=== PATIENT | female | born 2000 | race American Indian/Alaskan Native ===

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

== ENCOUNTER 2019-05-19 22:40 | Emergency (ER) | payer SELFPAY ==
[2019-05-19 23:18] LABS: Hematocrit 36.6 % (30.3-42.9); Hemoglobin 12.9 gm/dl (10.1-14.3); Mean Corpuscular HGB Conc 35 % (30-34); Mean Corpuscular Volume 88 fl (79-97); Platelet Count 225 K/mm3 (140-440); Red Blood Count 4.15 M/mm3 (3.65-5.03); Red Cell Distribution Width 12.9 % (13.2-15.2)
[2019-05-19 23:39] LABS: BUN/Creatinine Ratio 22; Blood Urea Nitrogen 13 mg/dL (7-17); Calcium 9.6 mg/dL (8.4-10.2); Hemolysis Index 5
[2019-05-19] MEDS ORDERED: PHENYTOIN 1,000 MG in SODIUM CHLORIDE 0.9% 250ML 250 ML IV ONE (23:50)
--- NOTE | 2019-05-19 23:53 | Emergency Department Report ---
ED Seizure HPI - General Chief Complaint: Seizure Stated Complaint: SEIZURE/WEAKNESS Time Seen by Provider: 05/19/19 23:45 Source: EMS Mode of arrival: Stretcher Limitations: Altered Mental Status - History of Present Illness Initial Comments: Patient is 18 years old female with history of seizure. Patient brought to the emergency room via EMS for evaluation of possible seizure that happened tonight at home. Patient boyfriend is giving history. He stated that she was fine until she went to bed when she started shaking and he passed out went to sleep. He stated that she was taking Keppra but she stopped taking it because of the side effect and currently does not taking any seizure medicine. He denies any injury. No fever or chills recently. Patient is post ictal when I examined her. Patient is moving all her extremities. MD Complaint: seizure -: Sudden, This evening Description of Episode: loss of consciousness, tonic-clonic movement, post-event confusion Witnessed:: Yes Trauma: No Seizure History: known seizure disorder Place: home Possible Precipitating Event: none Associated Symptoms: denies other symptoms Treatments Prior to Arrival: none - Related Data Allergies Allergy/AdvReac Type Severity Reaction Status Date / Time levetiracetam [From Keppra] Allergy Unknown Verified 05/19/19 22:59 ED Review of Systems ROS: Stated complaint: SEIZURE/WEAKNESS Other details as noted in HPI Comment: All other systems reviewed and negative Constitutional: denies: chills, fever Respiratory: denies: cough, shortness of breath, SOB with exertion Cardiovascular: denies: chest pain Gastrointestinal: denies: abdominal pain, nausea, diarrhea, constipation, hematemesis, melena, hematochezia Musculoskeletal: denies: back pain ED Past Medical Hx - Past Medical History Previous Medical History?: Yes Hx Seizures: Yes - Surgical History Past Surgical History?: No - Social History Smoking Status: Never Smoker ED Physical Exam - General Limitations: Altered Mental Status General appearance: alert, in no apparent distress - Head Head exam: Present: atraumatic, normocephalic, normal inspection - Eye Eye exam: Present: normal appearance - ENT ENT exam: Present: normal exam, normal orophraynx, mucous membranes moist - Neck Neck exam: Present: normal inspection, full ROM. Absent: tenderness, meningismus, lymphadenopathy, thyromegaly - Respiratory Respiratory exam: Present: normal lung sounds bilaterally - Cardiovascular Cardiovascular Exam: Present: regular rate, normal rhythm, normal heart sounds - GI/Abdominal GI/Abdominal exam: Present: soft, normal bowel sounds. Absent: distended, tenderness, guarding, rebound, rigid, organomegaly, mass, bruit, pulsatile mass, hernia - Extremities Exam Extremities exam: Present: normal inspection, full ROM, normal capillary refill. Absent: tenderness, pedal edema, calf tenderness - Back Exam Back exam: Present: normal inspection, full ROM. Absent: CVA tenderness (R), CVA tenderness (L) - Neurological Exam Neurological exam: Present: alert, oriented X3, CN II-XII intact, normal gait, reflexes normal. Absent: motor sensory deficit - Psychiatric Psychiatric exam: Present: normal mood - Skin Skin exam: Present: warm, intact, normal color ED Course Vital Signs 05/19/19 23:10 Temperature 98.2 F Pulse Rate 70 Respiratory 18 Rate Blood Pressure 112/75 [Left] O2 Sat by Pulse 100 Oximetry ED Medical Decision Making - Lab Data Result diagrams: 05/19/19 23:05 05/19/19 23:05 - Radiology Data Radiology results: report reviewed - Medical Decision Making Patient is 18 years old female with history of seizure. Patient brought to the emergency room via EMS for evaluation of possible seizure that happened tonight at home. Patient boyfriend is giving history. He stated that she was fine until she went to bed when she started shaking and he passed out went to sleep. He stated that she was taking Keppra but she stopped taking it because of the side effect and currently does not taking any seizure medicine. He denies any injury. No fever or chills recently. Patient is post ictal when I examined her. Patient is moving all her extremities. No seizure activities observed in the ER. Patient received Dilantin IV. Labs reviewed and is unremarkable. Patient given prescription for Dilantin 100 mg 3 times daily and advised to follow-up with her neurologist in the next 2 to 3 days and to return to the ER if she develop any new symptoms. Critical care attestation.: If time is entered above; I have spent that time in minutes in the direct care of this critically ill patient, excluding procedure time. ED Disposition Clinical Impression: Seizure Disposition: DC-01 TO HOME OR SELFCARE Is pt being admited?: No Condition: Stable Instructions: Recurrent Seizures Adult (ED) Referrals: ANKUR POP MD [Referring] - 3-5 Days Forms: Work/School Release Form(ED)
[2019-05-19] MEDS ORDERED: PHENYTOIN 100 MG/2 ML VIAL IV ONE (23:54)
[2019-05-20 01:16] LABS: Bacteria,Urine 1+ /HPF (Negative); Bilirubin,Urine NEG (Negative); Blood,Urine NEG (Negative); Color,Urine Yellow (Yellow); Mucus,Urine 1+ /HPF; Protein,Urine <15 mg/dL mg/dL (Negative)
[2019-05-20 01:18] LABS: HCG Qualitative,Urine Negative (Negative)
[2019-05-20 01:41] VITALS: BP 106/50
== END 2019-05-20 03:53 | disposition home or self-care (01) ==
LOC: ED 22:40
DX: R56.9 Unspecified convulsions (principal)
CPT/HCPCS: 36415; 80048; 81001; 81025; 82962; 85027; 99284; J1165; J7050

== ENCOUNTER 2019-06-23 19:06 | Emergency (ER) | payer SELFPAY ==
[2019-06-23] MEDS ORDERED: carBAMazepine 100 MG TAB CHEW PO ONE (20:22)
--- NOTE | 2019-06-23 20:28 | Emergency Department Report ---
ED Seizure HPI - General Chief Complaint: Seizure Stated Complaint: SEIZUER Time Seen by Provider: 06/23/19 20:14 Source: EMS Mode of arrival: Stretcher Limitations: No Limitations - History of Present Illness Initial Comments: 19-year-old female with history of seizure disorder presents to ED after having a witnessed seizure at home. Patient currently on the phone with her boyfriend, who witnessed the seizure, some history obtained from him as well. He reports patient has been noncompliant with her seizure medication, carbamazepine 100 mg. Patient states she does not like the way it makes her feel, therefore she does not take it every day. Denies any recent illness. Patient is currently A&O x3. MD Complaint: seizure -: This evening Description of Episode: loss of consciousness -: minutes(s) (5) Witnessed:: Yes Trauma: No Seizure History: known seizure disorder, history of non-compliance Place: home Possible Precipitating Event: lack of sleep, other (med noncompliance) Associated Symptoms: denies: cough, fever/chills, shortness of breath - Related Data Previous Rx's Medication Instructions Recorded Last Taken Type Phenytoin [Dilantin] 100 mg PO Q8HR #90 capsule 05/20/19 Unknown Rx carBAMazepine [TEGretol] 100 mg PO QHS #30 tab.chew 06/23/19 Unknown Rx Allergies Allergy/AdvReac Type Severity Reaction Status Date / Time levetiracetam [From Keppra] Allergy Unknown Verified 05/19/19 22:59 ED Review of Systems ROS: Stated complaint: SEIZUER Other details as noted in HPI Comment: All other systems reviewed and negative Constitutional: denies: fever Respiratory: denies: cough, shortness of breath Neurological: denies: headache ED Past Medical Hx - Past Medical History Previous Medical History?: Yes Hx Seizures: Yes - Social History Smoking Status: Never Smoker - Medications Home Medications: Home Medications Medication Instructions Recorded Confirmed Last Taken Type Phenytoin [Dilantin] 100 mg PO Q8HR #90 capsule 05/20/19 Unknown Rx carBAMazepine [TEGretol] 100 mg PO QHS #30 tab.chew 06/23/19 Unknown Rx ED Physical Exam - General Limitations: No Limitations General appearance: alert, in no apparent distress - Head Head exam: Present: atraumatic, normocephalic - Eye Eye exam: Present: normal appearance, PERRL, EOMI - ENT ENT exam: Present: mucous membranes moist - Neck Neck exam: Present: normal inspection - Respiratory Respiratory exam: Present: normal lung sounds bilaterally. Absent: respiratory distress - Cardiovascular Cardiovascular Exam: Present: regular rate, normal rhythm - GI/Abdominal GI/Abdominal exam: Present: soft. Absent: distended, tenderness - Extremities Exam Extremities exam: Present: normal inspection - Neurological Exam Neurological exam: Present: alert, oriented X3, CN II-XII intact, other (slightly postictal; responses somewaht slow but appropriate). Absent: motor sensory deficit - Psychiatric Psychiatric exam: Present: normal affect, normal mood - Skin Skin exam: Present: warm, dry, intact, normal color ED Course Vital Signs 06/23/19 06/23/19 06/23/19 19:27 20:00 20:40 Pulse Rate 82 Respiratory 16 21 Rate Blood Pressure 109/69 Blood Pressure 115/75 [Left] O2 Sat by Pulse 100 100 100 Oximetry 06/23/19 21:00 Pulse Rate Respiratory Rate Blood Pressure 147/74 Blood Pressure [Left] O2 Sat by Pulse 100 Oximetry ED Medical Decision Making - Lab Data Result diagrams: 06/23/19 20:24 06/23/19 20:24 - Medical Decision Making - pt currently A&O x 3 - no seizure activity while here in ED - labs unremarkable - carbamazepine dose given here in ED - will d/c home at this time - Differential Diagnosis seizure Critical care attestation.: If time is entered above; I have spent that time in minutes in the direct care of this critically ill patient, excluding procedure time. ED Disposition Clinical Impression: Seizure Disposition: DC-01 TO HOME OR SELFCARE Is pt being admited?: No Condition: Stable Instructions: Recurrent Seizures Adult (ED) Prescriptions: carBAMazepine [TEGretol] 100 mg PO QHS #30 tab.chew Referrals: ANKUR POP MD [Referring] - 3-5 Days Time of Disposition: 21:34
[2019-06-23 20:54] LABS: Hematocrit 36.8 % (30.3-42.9); Hemoglobin 12.4 gm/dl (10.1-14.3); Mean Corpuscular HGB Conc 34 % (30-34); Mean Corpuscular Volume 91 fl (79-97); Platelet Count 185 K/mm3 (140-440); Red Blood Count 4.05 M/mm3 (3.65-5.03); Red Cell Distribution Width 13.3 % (13.2-15.2)
[2019-06-23 20:59] LABS: BUN/Creatinine Ratio 18; Blood Urea Nitrogen 11 mg/dL (7-17); Calcium 9.1 mg/dL (8.4-10.2); Hemolysis Index 10
[2019-06-23 21:31] VITALS: BP 147/74
[2019-06-23 21:45] LABS: Basophils % (Manual) 0 % (0.0-1.8); RBC Morphology Normal; Total Cells Counted 100
== END 2019-06-23 22:22 | disposition home or self-care (01) ==
LOC: ED 19:06
DX: R56.9 Unspecified convulsions (principal); Z79.899 Other long term (current) drug therapy; Z88.8 Allergy status to other drugs, medicaments and biological substances
CPT/HCPCS: 36415; 80048; 84703; 85007; 85025; 99283

== ENCOUNTER 2020-01-07 09:35 | Emergency (ER) | payer SELFPAY ==
[2020-01-07 09:45] VITALS: BP 107/67
[2020-01-07 11:02] LABS: Hematocrit 39.7 % (30.3-42.9); Hemoglobin 14.1 gm/dl (10.1-14.3); Mean Corpuscular HGB Conc 35 % (30-34); Mean Corpuscular Volume 87 fl (79-97); Platelet Count 208 K/mm3 (140-440); Red Blood Count 4.55 M/mm3 (3.65-5.03)
[2020-01-07 11:20] LABS: Alanine Aminotransferase 14 units/L (7-56); Albumin 4.4 g/dL (3.9-5); Blood Urea Nitrogen 10 mg/dL (7-17); Calcium 9.6 mg/dL (8.4-10.2); Hemolysis Index 3
[2020-01-07 11:25] LABS: BUN/Creatinine Ratio 17
[2020-01-07] MEDS ORDERED: IBUPROFEN 800 MG TAB PO ONE (12:43)
[2020-01-07 12:45] LABS: Bacteria,Urine 1+ /HPF (Negative); Bilirubin,Urine NEG (Negative); Blood,Urine NEG (Negative); Color,Urine Yellow (Yellow); Hyaline Casts,Urine 1 /LPF; Mucus,Urine 3+ /HPF
--- NOTE | 2020-01-07 12:46 | Emergency Department Report ---
ED General Adult HPI - General Chief complaint: Abdominal Pain Stated complaint: ABDOMINAL PAIN Time Seen by Provider: 01/07/20 11:19 Source: patient Mode of arrival: Wheelchair Limitations: No Limitations - History of Present Illness Initial comments: 19-year-old -[place] female patient presents with complaints sudden onset of left lower abdominal pain today upon waking. She states the pain has improved since its onset and rates it as a 7/10 in severity. She denies any nausea/vomiting/diarrhea, constipation, melena/hematochezia, fever/ch ills/sweats, dysuria/hematuria/urinary frequency, vaginal discharge, or dyspareunia. She reports she had negative STD testing performed 1 week ago and denies having any sexual intercourse since then. Last menstrual cycle was approximately 1 month ago per patient. She denies any past medical history or surgical history. - Related Data Previous Rx's Medication Instructions Recorded Last Taken Type carBAMazepine [TEGretol] 100 mg PO QHS #30 tab.chew 06/23/19 Unknown Rx Phenytoin [Dilantin] 100 mg PO Q8HR #90 capsule 10/06/19 Unknown Rx Dicyclomine [Bentyl] 20 mg PO QID PRN #20 tablet 01/07/20 Unknown Rx Ibuprofen [Motrin 800 MG tab] 800 mg PO Q8HR PRN #21 tablet 01/07/20 Unknown Rx Sulfamethoxazole/Trimethoprim 1 each PO BID 5 Days #10 tablet 01/07/20 Unknown Rx [Bactrim DS TAB] Allergies Allergy/AdvReac Type Severity Reaction Status Date / Time [facility] Allergy Unknown Verified 05/19/19 22:59 ED Review of Systems ROS: Stated complaint: ABDOMINAL PAIN Other details as noted in HPI Constitutional: denies: chills, diaphoresis, fever, malaise, weakness ENT: denies: throat pain Respiratory: denies: cough, shortness of breath Cardiovascular: denies: chest pain Gastrointestinal: abdominal pain. denies: nausea, vomiting, diarrhea, constipation, hematemesis, melena, hematochezia Genitourinary: denies: urgency, dysuria, frequency, hematuria, discharge, abnormal menses Musculoskeletal: denies: joint swelling Skin: denies: rash, lesions, change in color Neurological: denies: headache Hematological/Lymphatic: denies: swollen glands ED Past Medical Hx - Past Medical History Previous Medical History?: Yes Hx Seizures: Yes - Social History Smoking Status: Unknown if ever smoked - Medications Home Medications: Home Medications Medication Instructions Recorded Confirmed Last Taken Type carBAMazepine [TEGretol] 100 mg PO QHS #30 tab.chew 06/23/19 Unknown Rx Phenytoin [Dilantin] 100 mg PO Q8HR #90 capsule 10/06/19 Unknown Rx Dicyclomine [Bentyl] 20 mg PO QID PRN #20 tablet 01/07/20 Unknown Rx Ibuprofen [Motrin 800 MG tab] 800 mg PO Q8HR PRN #21 tablet 01/07/20 Unknown Rx Sulfamethoxazole/Trimethoprim 1 each PO BID 5 Days #10 tablet 01/07/20 Unknown Rx [Bactrim DS TAB] ED Physical Exam - General Limitations: No Limitations General appearance: alert, in no apparent distress - Head Head exam: Present: atraumatic, normocephalic - Eye Eye exam: Present: normal appearance. Absent: scleral icterus - ENT ENT exam: Present: mucous membranes moist - Neck Neck exam: Present: full ROM - Respiratory Respiratory exam: Present: normal lung sounds bilaterally. Absent: respiratory distress - Cardiovascular Cardiovascular Exam: Present: regular rate, normal rhythm. Absent: systolic murmur, diastolic murmur, rubs, gallop - GI/Abdominal GI/Abdominal exam: Present: soft, tenderness (Left lower quadrant, per iumbilical). Absent: distended, guarding, rebound, rigid, normal bowel sounds - Expanded GI/Abdominal Exam Expanded GI/Abdominal exam: Absent: psoas sign, obturator sign, heel tap sign, tenderness at [place], ascites - Extremities Exam Extremities exam: Present: normal inspection - Back Exam Back exam: Present: normal inspection. Absent: CVA tenderness (R), CVA tenderness (L) - Neurological Exam Neurological exam: Present: alert, oriented X3 - Psychiatric Psychiatric exam: Present: normal affect, normal mood - Skin Skin exam: Present: warm, dry, intact, normal color. Absent: rash, cyanosis, diaphoretic, erythema, pallor, ecchymosis ED Course Vital Signs 01/07/20 09:40 Temperature 97.8 F Pulse Rate 81 Respiratory 20 Rate Blood Pressure 107/67 O2 Sat by Pulse 100 Oximetry ED Medical Decision Making - Lab Data Result diagrams: 01/07/20 09:44 01/07/20 09:44 - Radiology Data Radiology results: report reviewed - Medical Decision Making 19-year-old -[place] female patient presents with complaints sudden o nset of left lower abdominal pain today upon waking. She states the pain has improved since its onset and rates it as a 7/10 in severity. She denies any nausea/vomiting/diarrhea, constipation, melena/hematochezia, fever/chills/sweats, dysuria/hematuria/urinary frequency, vaginal discharge, or dyspareunia. She reports she had negative STD testing performed 1 week ago and denies having any sexual intercourse since then. Last menstrual cycle was approximately 1 month ago per patient. She denies any past medical history or surgical history. On exam she has some tenderness to palpation of the left lower quadrant without rebound or guarding. CBC, CMP, lipase are normal. UA shows 13 WBCs. Suspect patient symptoms are due to a UTI. Urine culture ordered Bactrim given for home. Her vitals are normal, she is well-appearing, and stable for discharge. Recommend follow-up with primary care in 2 to 3 days. Strict return precautions were discussed in detail with patient who verbalizes understanding. Critical care attestation.: If time is entered above; I have spent that time in minutes in the direct care of this critically ill patient, excluding procedure time. ED Disposition Clinical Impression: Acute abdominal pain in left lower quadrant UTI (urinary tract infection) Qualifiers: Urinary tract infection type: acute cystitis Hematuria presence: without hematuria Qualified Code(s): N30.00 - Acute cystitis without hematuria Disposition: - TO HOME OR SELFCARE Is pt being admited?: No Condition: Stable Instructions: Urinary Tract Infection in Women (ED) Prescriptions: Sulfamethoxazole/Trimethoprim [Bactrim DS TAB] 1 each PO BID 5 Days #10 tablet Dicyclomine [Bentyl] 20 mg PO QID PRN #20 tablet PRN Reason: cramping pain Ibuprofen [Motrin 800 MG tab] 800 mg PO Q8HR PRN #21 tablet PRN Reason: pain Referrals: [facility] [Provider Group] - 01/09/20
== END 2020-01-07 13:12 | disposition home or self-care (01) ==
LOC: ED 09:35
DX: N39.0 Urinary tract infection, site not specified (principal); R10.32 Left lower quadrant pain; Z86.69 Personal history of other diseases of the nervous system and sense organs; Z79.899 Other long term (current) drug therapy; Z88.8 Allergy status to other drugs, medicaments and biological substances
CPT/HCPCS: 36415; 80053; 81001; 83690; 84703; 85025; 87076; 87086; 87186

== ENCOUNTER 2020-05-29 13:18 | Emergency (ER) | payer SELFPAY ==
--- NOTE | 2020-05-29 13:32 | Event Note ---
ED Screening Note Date of service: 05/29/20 Time: 13:31 ED Screening Note: Patient complains of chest pain boring through to her back starting this morning Tenderness to palpation of the left costal sternal area and diffuse tenderness to palpation of the upper back on exam Denies shortness of breath History of seizures This initial assessment/diagnostic orders/clinical plan/treatment(s) is/are subject to change based on patients health status, clinical progression and re- assessment by fellow clinical providers in the ED. Further treatment and workup at subsequent clinical providers discretion. Patient/guardian urged not to elope from the ED as their condition may be serious if not clinically assessed and managed. Initial orders include: Chest x-ray EKG Labs
[2020-05-29 14:30] LABS: Hematocrit 38.1 % (30.3-42.9); Hemoglobin 13.5 gm/dl (10.1-14.3); Mean Corpuscular HGB Conc 36 % (30-34); Mean Corpuscular Volume 89 fl (79-97); Platelet Count 178 K/mm3 (140-440); Red Blood Count 4.26 M/mm3 (3.65-5.03)
[2020-05-29 14:51] LABS: Alanine Aminotransferase 11 units/L (7-56); Albumin 4.4 g/dL (3.9-5); Blood Urea Nitrogen 9 mg/dL (7-17); Calcium 9.3 mg/dL (8.4-10.2); Hemolysis Index 7
--- NOTE | 2020-05-29 14:52 | XRay Report ---
CHEST 2 VIEWS INDICATION / CLINICAL INFORMATION: chest pain going through to back. COMPARISON: None available. FINDINGS: SUPPORT DEVICES: None. HEART / MEDIASTINUM: No significant abnormality. LUNGS / PLEURA: No significant pulmonary or pleural abnormality. No pneumothorax. ADDITIONAL FINDINGS: No significant additional findings. IMPRESSION: 1. No acute findings. Signer Name: Vladimir Benson MD Signed: 05/29/2020 2:48 PM Workstation Name: [id number]
--- NOTE | 2020-05-29 15:07 | Emergency Department Report ---
ED Chest Pain HPI - General Chief Complaint: Back Pain/Injury Stated Complaint: BACK PAIN PUI?: No Time Seen by Provider: 05/29/20 13:29 Source: patient Mode of arrival: Ambulatory Limitations: No Limitations - History of Present Illness Initial Comments: The patient was evaluated in the emergency department for symptoms described in the history of present illness. He/she was evaluated in the context of the global COVID-19 pandemic, which necessitated consideration that the patient might be at risk for infection with the virus that causes COVID-19. Institutional protocols and algorithms that pertain to the evaluation of patients at risk for COVID-19 are in a state of rapid change based on information released by regulatory bodies including the CDC and federal and state organizations. These policies and algorithms were followed during the patient's care in the emergency department. Please note that these policies, procedures and recommendations changed on a rapid basis. 19-year-old -Beninese female presents to the emergency room complaining of back pain and chest pain that started this morning approximately 1030. Patient states she was at her usual state at rest. Patient denies any trauma to her back or chest. She states that the pain is sharp and constant and when you touch her and her chest it feels like pressure. Patient does have a history of seizure disorder but no recent seizure activity. Patient is currently on no seizure medication. Patient states she has had symptoms similar to this in the past when she had pulled her neck muscle. Patient denies any primary care provider. She denies any nausea no vomiting no shortness of breath or diarrhea. She states she works at [email or web address] but does not hit lift heavy boxes. She has an allergy to Keppra. She did take ibuprofen 400 mg around 12 today. MD Complaint: chest pain, other (back Pain) -: This morning Time: 10:30 Onset: during rest Pain Location: substernal, other (Left flank and back) Pain Radiation: back Severity scale (0 -10): 7 Quality: sharp Consistency: constant Improves With: nothing Worsens With: palpation re: denies: nausea, vomting, diaphoresis, dyspnea, sense of impending doom Other Symptoms: denies: cough, fever, syncope, rash, acid taste in mouth, leg swelling, palpitations, burping Treatments Prior to Arrival: other (Ibuprofen 400 mg) - Related Data Previous Rx's Medication Instructions Recorded Last Taken Type carBAMazepine [TEGretol] 100 mg PO QHS #30 tab.chew 06/23/19 Unknown Rx Phenytoin [Dilantin] 100 mg PO Q8HR #90 capsule 10/06/19 Unknown Rx Dicyclomine [Bentyl] 20 mg PO QID PRN #20 tablet 01/07/20 Unknown Rx Ibuprofen [Motrin 800 MG tab] 800 mg PO Q8HR PRN #21 tablet 01/07/20 Unknown Rx Sulfamethoxazole/Trimethoprim 1 each PO BID 5 Days #10 tablet 01/07/20 Unknown Rx [Bactrim DS TAB] Baclofen [Lioresal] 10 mg PO TID #15 tab 05/29/20 Unknown Rx Ibuprofen [Motrin 400 MG tab] 400 mg PO Q8H PRN #30 tablet 05/29/20 Unknown Rx Allergies Allergy/AdvReac Type Severity Reaction Status Date / Time levetiracetam [From [facility]] Allergy Unknown Verified 05/29/20 13:22 Heart Score - HEART Score History: Slightly suspicious EKG: Normal Age: < 45 Risk factors: No known risk factors Troponin: < normal limit HEART Score: 0 ED Review of Systems ROS: Stated complaint: BACK PAIN Other details as noted in HPI Comment: All other systems reviewed and negative ED Past Medical Hx - Past Medical History Hx Seizures: Yes - Surgical History Additional Surgical History: NONE - Social History Smoking Status: Never Smoker Substance Use Type: None - Medications Home Medications: Home Medications Medication Instructions Recorded Confirmed Last Taken Type carBAMazepine [TEGretol] 100 mg PO QHS #30 tab.chew 06/23/19 Unknown Rx Phenytoin [Dilantin] 100 mg PO Q8HR #90 capsule 10/06/19 Unknown Rx Dicyclomine [Bentyl] 20 mg PO QID PRN #20 tablet 01/07/20 Unknown Rx Ibuprofen [Motrin 800 MG tab] 800 mg PO Q8HR PRN #21 tablet 01/07/20 Unknown Rx Sulfamethoxazole/Trimethoprim 1 each PO BID 5 Days #10 tablet 01/07/20 Unknown Rx [Bactrim DS TAB] Baclofen [Lioresal] 10 mg PO TID #15 tab 05/29/20 Unknown Rx Ibuprofen [Motrin 400 MG tab] 400 mg PO Q8H PRN #30 tablet 05/29/20 Unknown Rx ED Physical Exam - General Limitations: No Limitations General appearance: alert, in no apparent distress - Head Head exam: Present: atraumatic, normocephalic - Eye Eye exam: Present: normal appearance - ENT ENT exam: Present: normal exam - Neck Neck exam: Present: normal inspection, full ROM. Absent: tenderness - Respiratory Respiratory exam: Present: normal lung sounds bilaterally, chest wall tenderness - Cardiovascular Cardiovascular Exam: Present: regular rate, normal rhythm. Absent: systolic murmur, diastolic murmur, rubs, gallop - Extremities Exam Extremities exam: Present: normal inspection, full ROM - Back Exam Back exam: Present: full ROM, tenderness, muscle spasm. Absent: vertebral tenderness, rash noted - Neurological Exam Neurological exam: Present: alert, oriented X3 - Psychiatric Psychiatric exam: Present: normal affect, normal mood - Skin Skin exam: Present: warm, dry, intact, normal color. Absent: rash ED Course Vital Signs 05/29/20 05/29/20 05/29/20 13:23 13:26 16:07 Temperature 98.2 F 98.2 F 98.6 F Pulse Rate 81 94 H Respiratory 20 16 Rate Blood Pressure 118/81 119/87 [Right] O2 Sat by Pulse 100 100 Oximetry ED Medical Decision Making - Lab Data Result diagrams: 05/29/20 14:04 05/29/20 14:04 - Medical Decision Making 19-year-old -Beninese female presents to the emergency room complaining of back pain and chest pain that started this morning approximately 1030. Patient states she was at her usual state at rest. Patient denies any trauma to her back or chest. She states that the pain is sharp and constant and when you touch her and her chest it feels like pressure. Patient does have a history of seizure disorder but no recent seizure activity. Patient is currently on no seizure medication. Patient states she has had symptoms similar to this in the past when she had pulled her neck muscle. Patient denies any primary care provider. She denies any nausea no vomiting no shortness of breath or diarrhea. She states she works at [email or web address] but does not hit lift heavy boxes. She has an allergy to Keppra. She did take ibuprofen 400 mg around 12 today. Patient is heard arguing and screaming to the top of her lungs on her phone. When asked to quiet down some she states she is just ready to go. Chest x-ray is negative labs are stable vital signs are within normal limits. Critical care attestation.: If time is entered above; I have spent that time in minutes in the direct care of this critically ill patient, excluding procedure time. ED Disposition Clinical Impression: Atypical chest pain, Tenderness of back, Chest wall tenderness Disposition: TO HOME OR SELFCARE Is pt being admited?: No Does the pt Need Aspirin: No Condition: Stable Instructions: Acute Back Pain, Adult, Chest Wall Pain, [id number], Nonspecific Chest Pain, Adult, [id number] Additional Instructions: Chest x-ray is negative labs are stable vital signs are within normal limits. Recommended she follow-up with your primary care provider I have listed several below for your convenience. Prescriptions: Baclofen [Lioresal] 10 mg PO TID #15 tab Ibuprofen [Motrin 400 MG tab] 400 mg PO Q8H PRN #30 tablet PRN Reason: Pain , Severe (7-10) Referrals: [facility] [Provider Group] - 3-5 Days ALEXANDER WEINBERG MD [Staff Physician] - 3-5 Days Forms: Work/School Release Form(ED)
[2020-05-29 15:19] LABS: Total Cells Counted 100
[2020-05-29 15:21] LABS: RBC Morphology Normal
[2020-05-29 15:22] LABS: Platelet Estimate Consistent w Auto
[2020-05-29 15:27] LABS: BUN/Creatinine Ratio 15
[2020-05-29 16:08] VITALS: BP 119/87
--- NOTE | 2020-05-30 09:48 | Electrocardiograph Report ---
[facility] Test Date: 2020-05-29 Test Time: 13:49:38 Pat Name: SAVANNAH MURRY Department: Room: Gender: F Relations Specialist: : 2000 Requested By: CHOLO PAYNE Order Number: [id number] Reading MD: Shashank Mcrae Measurements Intervals Joes Rate: 78 P: 75 HI: 145 QRS: 78 QRSD: 64 T: 58 QT: 365 QTc: 416 Interpretive Statements Sinus rhythm No previous ECG available for comparison Electronically Signed On 05-30-2020 6:47:59 PDT by Shashank Mcrae
== END 2020-05-29 16:08 | disposition home or self-care (01) ==
LOC: ED 13:18
DX: R07.89 Other chest pain (principal); M54.2 Cervicalgia; M54.5 Low back pain; G40.909 Epilepsy, unspecified, not intractable, without status epilepticus; Z79.899 Other long term (current) drug therapy; Z88.8 Allergy status to other drugs, medicaments and biological substances
CPT/HCPCS: 36415; 71046; 80053; 84484; 84703; 85007; 85025; 93005; 99283

== ENCOUNTER 2020-09-01 03:14 | Emergency (ER) | payer SELFPAY ==
[2020-09-01] MEDS ORDERED: ONDANSETRON 4 MG ODT TAB PO ONE (04:14)
[2020-09-01] MEDS ORDERED: ACETAMINOPHEN 325 MG TAB PO ONE (04:14)
[2020-09-01] MEDS ORDERED: IBUPROFEN 600 MG TAB PO ONE (04:14)
--- NOTE | 2020-09-01 04:17 | Event Note ---
ED Screening Note Date of service: 09/01/20 Time: 04:15 ED Screening Note: Patient is a nulliparous 20-year-old -Eritre[place] female with a history of seizures who presents to the ED with complaint of acute onset persistent diffuse abdominal pain with nausea for the last 20 hours. Patient states that she is also currently on her menstrual cycle and attributes the pain to menstrual cramps. Patient states that she usually experiences similar symptoms every month whenever she menstrual cycle. Patient denies diarrhea, dysuria, urinary frequency and urgency, fever, chills, diarrhea, abdominal pain, vomiting, chest pain or shortness of breath, traumatic injury or hematemesis. This initial assessment/diagnostic orders/clinical plan/treatment(s) is/are subject to change based on patients health status, clinical progression and re- assessment by fellow clinical providers in the ED. Further treatment and workup at subsequent clinical providers discretion. Patient/guardian urged not to elope from the ED as their condition may be serious if not clinically assessed and managed. Initial orders include: CBC, CMP, serum hCG, lipase, UA,
[2020-09-01 05:27] LABS: Basophils % (Auto) 0.7 % (0.0-1.8); Eosinophils % (Auto) 0.4 % (0.0-4.3); Hematocrit 38.1 % (30.3-42.9); Hemoglobin 13.5 gm/dl (10.1-14.3); Lymphocytes # (Auto) 1.5 K/mm3 (1.2-5.4); Lymphocytes % (Auto) 33.5 % (13.4-35.0); Mean Corpuscular HGB Conc 35 % (30-34); Mean Corpuscular Volume 90 fl (79-97); Monocytes # (Auto) 0.2 K/mm3 (0.0-0.8); Monocytes % (Auto) 5.6 % (0.0-7.3); Platelet Count 197 K/mm3 (140-440); Red Blood Count 4.22 M/mm3 (3.65-5.03); Red Cell Distribution Width 13.1 % (13.2-15.2)
[2020-09-01 05:50] LABS: Alanine Aminotransferase 10 units/L (7-56); Albumin 4.7 g/dL (3.9-5); Blood Urea Nitrogen 8 mg/dL (7-17); Calcium 9.7 mg/dL (8.4-10.2); Hemolysis Index 2
[2020-09-01 06:01] LABS: BUN/Creatinine Ratio 13
[2020-09-01 06:22] LABS: Bilirubin,Urine NEG (Negative); Blood,Urine LG (Negative); Color,Urine Yellow (Yellow); Mucus,Urine FEW /HPF; Protein,Urine <15 mg/dL mg/dL (Negative); Urobilinogen,Urine < 2.0 mg/dL (<2.0)
--- NOTE | 2020-09-01 07:54 | Emergency Department Report ---
ED Female HPI - General Chief complaint: Abdominal Pain Stated complaint: CRAMPING PAIN/NAUSEA Time Seen by Provider: 09/01/20 07:49 Source: patient Mode of arrival: Ambulatory Limitations: No Limitations - History of Present Illness Initial comments: Patient is a nulliparous 20-year-old -[place] female with a history of seizures who presents to the ED with complaint of acute onset persistent diffuse abdominal pain with nausea for the last 20 hours. Patient states that she is also currently on her menstrual cycle and attributes the pain to menstrual cramps. Patient states that she usually experiences similar symptoms every month whenever she menstrual cycle. Patient denies diarrhea, dysuria, urinary frequency and urgency, fever, chills, diarrhea, abdominal pain, vomiting, chest pain or shortness of breath, traumatic injury or hematemesis. Patient reports she is taking ibuprofen 400 mg last night between and . Patient states that she was given Tylenol and ibuprofen which has helped some with her menstrual cramps. Patient currently is not on control and does not have a primary care provider MD Complaint: pelvic pain -: During the night Location: suprapubic Radiation: non-radiating Severity: severe Severity scale (0 -10): 10 Quality: cramping Consistency: constant Improves with: none Worsens with: menstrual period Are you Now?: No Last Menstrual Period: 08/30/20 EDC: 06/06/21 Associated Symptoms: vaginal bleeding - Related Data : 0 Previous Rx's Medication Instructions Recorded Last Taken Type carBAMazepine [TEGretol] 100 mg PO QHS #30 tab.chew 06/23/19 Unknown Rx Phenytoin [Dilantin] 100 mg PO Q8HR #90 capsule 10/06/19 Unknown Rx Dicyclomine [Bentyl] 20 mg PO QID PRN #20 tablet 01/07/20 Unknown Rx Ibuprofen [Motrin 800 MG tab] 800 mg PO Q8HR PRN #21 tablet 01/07/20 Unknown Rx Sulfamethoxazole/Trimethoprim 1 each PO BID 5 Days #10 tablet 01/07/20 Unknown Rx [Bactrim DS TAB] Baclofen [Lioresal] 10 mg PO TID #15 tab 05/29/20 Unknown Rx Ibuprofen [Motrin 400 MG tab] 400 mg PO Q8H PRN #30 tablet 05/29/20 Unknown Rx Allergies Allergy/AdvReac Type Severity Reaction Status Date / Time levetiracetam [From [facility]] Allergy Unknown Verified 05/29/20 13:22 ED Review of Systems ROS: Stated complaint: CRAMPING PAIN/NAUSEA Other details as noted in HPI ED Past Medical Hx - Past Medical History Previous Medical History?: No Hx Seizures: Yes - Surgical History Past Surgical History?: No Additional Surgical History: NONE - Social History Smoking Status: Never Smoker Substance Use Type: None - Medications Home Medications: Home Medications Medication Instructions Recorded Confirmed Last Taken Type carBAMazepine [TEGretol] 100 mg PO QHS #30 tab.chew 06/23/19 Unknown Rx Phenytoin [Dilantin] 100 mg PO Q8HR #90 capsule 10/06/19 Unknown Rx Dicyclomine [Bentyl] 20 mg PO QID PRN #20 tablet 01/07/20 Unknown Rx Ibuprofen [Motrin 800 MG tab] 800 mg PO Q8HR PRN #21 tablet 01/07/20 Unknown Rx Sulfamethoxazole/Trimethoprim 1 each PO BID 5 Days #10 tablet 01/07/20 Unknown Rx [Bactrim DS TAB] Baclofen [Lioresal] 10 mg PO TID #15 tab 05/29/20 Unknown Rx Ibuprofen [Motrin 400 MG tab] 400 mg PO Q8H PRN #30 tablet 05/29/20 Unknown Rx ED Physical Exam - General Limitations: No Limitations ED Medical Decision Making - Lab Data Result diagrams: 09/01/20 04:37 09/01/20 04:37 Laboratory Tests 09/01/20 09/01/20 09/01/20 04:37 04:37 04:37 WBC 4.4 L RBC 4.22 Hgb 13.5 Hct 38.1 MCV 90 MCH 32 MCHC 35 H RDW 13.1 L Plt Count 197 Lymph % (Auto) 33.5 [place] % (Auto) 5.6 Eos % (Auto) 0.4 Baso % (Auto) 0.7 Lymph # (Auto) 1.5 [place] # (Auto) 0.2 Eos # (Auto) 0.0 Baso # (Auto) 0.0 Seg Neutrophils % 59.8 Seg Neutrophils # 2.6 Sodium 139 Potassium 3.9 Chloride 104.3 Carbon Dioxide 25 Anion Gap 14 BUN 8 Creatinine 0.6 Estimated GFR > 60 BUN/Creatinine Ratio 13 Glucose 90 Calcium 9.7 Total Bilirubin 1.00 AST 18 ALT 10 Alkaline Phosphatase 81 Total Protein 7.2 Albumin 4.7 Albumin/Globulin Ratio 1.9 Lipase 25 HCG, Qual Negative Urine Color Urine Turbidity Urine pH Ur Specific [place] Urine Protein Urine Glucose (UA) Urine Ketones Urine Blood Urine Nitrite Urine Bilirubin Urine Urobilinogen Ur Leukocyte Esterase Urine WBC (Auto) Urine RBC (Auto) U Epithel Cells (Auto) Urine Mucus 09/01/20 Unknown WBC RBC Hgb Hct MCV MCH MCHC RDW Plt Count Lymph % (Auto) [place] % (Auto) Eos % (Auto) Baso % (Auto) Lymph # (Auto) [place] # (Auto) Eos # (Auto) Baso # (Auto) Seg Neutrophils % Seg Neutrophils # Sodium Potassium Chloride Carbon Dioxide Anion Gap BUN Creatinine Estimated GFR BUN/Creatinine Ratio Glucose Calcium Total Bilirubin AST ALT Alkaline Phosphatase Total Protein Albumin Albumin/Globulin Ratio Lipase HCG, Qual Urine Color Yellow Urine Turbidity Clear Urine pH 6.0 Ur Specific [place] 1.013 Urine Protein <15 mg/dl Urine Glucose (UA) Neg Urine Ketones Neg Urine Blood Lg Urine Nitrite Neg Urine Bilirubin Neg Urine Urobilinogen < 2.0 Ur Leukocyte Esterase Neg Urine WBC (Auto) 1.0 Urine RBC (Auto) 2.0 U Epithel Cells (Auto) 3.0 Urine Mucus Few - Medical Decision Making Patient is a nulliparous 20-year-old -[place] female with a history of seizures who presents to the ED with complaint of acute onset persistent diffuse abdominal pain with nausea for the last 20 hours. Patient states that she is also currently on her menstrual cycle and attributes the pain to menstrual cramps. Patient states that she usually experiences similar symptoms every month whenever she menstrual cycle. Patient denies diarrhea, dysuria, urinary frequency and urgency, fever, chills, diarrhea, abdominal pain, vomiting, chest pain or shortness of breath, traumatic injury or hematemesis. Patient reports she is taking ibuprofen 400 mg last night between and . Patient states that she was given Tylenol and ibuprofen which has helped some with her menstrual cramps. Patient currently is not on control and does not have a primary care provider Critical care attestation.: If time is entered above; I have spent that time in minutes in the direct care of this critically ill patient, excluding procedure time. ED Disposition Clinical Impression: Dysmenorrhea, unspecified Disposition: -01 TO HOME OR SELFCARE Is pt being admited?: No Does the pt Need Aspirin: No Condition: Stable Instructions: Abdominal Pain (ED), Dysmenorrhea, [id number] Additional Instructions: Please take ibuprofen 600 mg every 6-8 hours and Tylenol 1000 mg every 6 hours as needed for pain. Continue with warm compress to your stomach. Follow-up with a postdoctoral fellow. All labs are within normal limits. Referrals: [facility] [Provider Group] - 3-5 Days Forms: Work/School Release Form(ED)
[2020-09-01 08:34] VITALS: BP 129/75
== END 2020-09-01 08:30 | disposition home or self-care (01) ==
LOC: ED 03:14
DX: N94.6 Dysmenorrhea, unspecified (principal); Z86.69 Personal history of other diseases of the nervous system and sense organs; Z88.1 Allergy status to other antibiotic agents; Z79.899 Other long term (current) drug therapy
CPT/HCPCS: 36415; 80053; 81001; 83690; 84703; 85025; 99283; Q0162